=== PATIENT | female | born 1995 | race Two or more races ===

== ENCOUNTER 2022-08-13 09:23 | Emergency (ER) | payer SELFPAY ==
[~2022-08-13] VITALS: Ht 170.2 cm; Wt 68.0 kg
--- NOTE | 2022-08-13 09:30 | NUR ---
for 4 days Received pt 27 yrs female C/O lower abdomiale pain 10/10 on and off for 4 days goting worse today
--- NOTE | 2022-08-13 09:45 | NUR ---
Seen by DR. WILSON
--- NOTE | 2022-08-13 09:46 | NUR ---
INSERTED ANG CATHETER G 20 ON LT AC BLOOD DROW AND SEEN TO LAB
--- NOTE | 2022-08-13 09:51 | NUR ---
BIBS FOR lower abdominal pain, hematuria x 4 days. WILL CONTINUE TO MONITOR PATIENT
--- NOTE | 2022-08-13 09:55 | NUR ---
UA SENT TO LAB
[2022-08-13] MEDS ORDERED: ONDANSETRON HCL/PF 4 MG/2 ML VIAL ONE (09:59)
[2022-08-13] MEDS ORDERED: IV NS 0.9% 1,000 ML BAG IV ONE (10:00)
[2022-08-13] MEDS ORDERED: ONDANSETRON HCL/PF 4 MG/2 ML VIAL IVP ONE (10:00)
[2022-08-13] MEDS ORDERED: MORPHINE SULFATE INJ 2 MG/ML DISP.SYRIN IV ONE (10:00)
[2022-08-13] MEDS ORDERED: MORPHINE SULFATE INJ 4 MG/ML DISP.SYRIN ONE (10:01)
[2022-08-13 10:17] LABS: BILIRUBIN,URINE 1+ (NEGATIVE); COLOR,URINE AMBER (YELLOW); LEUKOCYTE ESTERASE ,URINE 3+ (NEGATIVE); NITRITE, URINE POSITIVE (NEGATIVE); PH,URINE 6.5 (5.0-8.0); PROTEIN,URINE 2+ mg/dl (NEGATIVE); UGLUCOSE TRACE mg/dL (NEGATIVE)
[2022-08-13 10:18] LABS: CALCIUM, SERUM 9.4 mg/dL (8.5-10.1); POTASSIUM 4.2 mmol/L (3.5-5.1)
[2022-08-13 10:24] LABS: ALBUMIN 4.4 g/dL (3.4-5.0); BILIRUBIN,DIRECT 0.1 mg/dL (0.0-0.2); BILIRUBIN,TOTAL 0.4 mg/dL (0.2-1.0); TOTAL PROTEIN, SERUM 7.6 g/dL (6.4-8.2)
--- NOTE | 2022-08-13 10:30 | NUR ---
to ct scan of abdomin
[2022-08-13 10:34] LABS: BACTERIA,URINE None seen /HPF (None Seen); RBC,URINE 51-80 /HPF (0-2); SQUAMOUS EPITHELIAL CELL,UR Rare /HPF (None Seen)
[2022-08-13 10:49] LABS: EOSINOPHILS % (AUTO) 0.7 % (0.0-6.0); HEMATOCRIT 41 % (33-45); HEMOGLOBIN 13.8 g/dL (11.5-14.8); LYMPHOCYTES % (AUTO) 14.5 % (20.0-44.0); MEAN CORPUSCULAR HGB CONC 33 g/dl (31.0-36.0); MEAN CORPUSCULAR VOLUME 29 fL (82-100); NEUTROPHILS % (AUTO) 80.5 % (43.0-81.0); PLATELET COUNT (AUTO) 192 K/uL (150-450); RED BLOOD CELL COUNT(AUTO) 4.74 MIL/uL (4.0-5.2); WHITE BLOOD COUNT (AUTO) 9.7 K/uL (4.3-11.0)
[2022-08-13 10:50] LABS: BASOPHILS % (AUTO) 0.3 % (0.0-2.0); LYMPHOCYTES # (AUTO) 1.4 K/uL (0.8-4.8); MONOCYTES # (AUTO) 0.4 K/uL (0.1-1.30); NEUTROPHILS # (AUTO) 7.8 K/uL (1.8-8.9)
--- NOTE | 2022-08-13 11:45 | NUR ---
AWAITING DIPOSITION OF PATIENT BY .
[2022-08-13] MEDS ORDERED: CEFP200T14 PO (12:04)
[2022-08-13] MEDS ORDERED: IBUP-1957 PO (12:07)
[2022-08-13] MEDS ORDERED: CEFTRIAXONE 1GM BAG (ER ONLY) 50 ML IV ONE (12:19)
[2022-08-13] MEDS ORDERED: CEFTRIAXONE 1 G in IV D5W 50 ML IV ONE (12:30)
--- NOTE | 2022-08-13 12:50 | NUR ---
IV removed. Catheter intact and site benign. Pressure and 4x4 applied to site. No bleeding noted.
--- NOTE | 2022-08-13 12:51 | NUR ---
ROCEPHIN I GM IVPB INFUSED AND COMPLETED NO REACTION
--- NOTE | 2022-08-13 12:52 | NUR ---
Patient discharged to home in stable condition. Written and verbal after care instructions given. Patient verbalizes understanding of instruction.
[2022-08-13 13:06] VITALS: BP 101/53
== END 2022-08-13 13:07 | disposition home or self-care (01) ==
LOC: ER 09:42
DX: N10 Acute pyelonephritis (principal); R11.0 Nausea; Z87.440 Personal history of urinary (tract) infections
CPT/HCPCS: 99285; 74176; 96365; 96375; 96361; 85025; 80048; 87086; 83690; 80076; 81001; 36415; 84702; J2270; J0696 ×2; J2405; J7060; J7030